=== PATIENT | female | born 1995 | race Caucasian/White ===

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

== ENCOUNTER 2020-10-08 12:13 | Emergency (ER) | payer SELFPAY ==
[2020-10-08 12:19] VITALS: BP 106/69
[2020-10-08] MEDS ORDERED: DEXAMETHASONE SOD PHOS INJ 10 MG/1 ML VIAL IM ONE (13:11)
--- NOTE | 2020-10-08 13:14 | ER Document Report ---
HPI - HPI Time Seen by Provider: 10/08/20 13:02 Pain Level: 5 Context: Patient is a 25-year-old female who presents emergency department with a chief complaint of sore throat. Patient reports this has been ongoing for 5 days and continuing to get worse. Patient states that she was Covid tested 2 days ago which was negative. She states this was a PCR, send out test. Patient reports that her mother is also having similar symptoms. Patient reports she was negative for strep at that time as well. Patient reports she has a history of strep and states it feels the same. Patient also complains of a headache and right ear pain. - CONSTITUTIONAL Constitutional: DENIES: Fever, Chills - EENT EENT: REPORTS: Sore Throat, Ear Pain - NEURO Neurology: REPORTS: Headache - REPRODUCTIVE Reproductive: DENIES: : Past Medical History - General Information source: Patient - Social History Smoking Status: Unknown if Ever Smoked Frequency of alcohol use: None Drug Abuse: None Lives with: Family Family History: Other - Migraine headaches and mother - Past Medical History Cardiac Medical History: Reports: None Pulmonary Medical History: Reports: Hx Bronchitis EENT Medical History: Reports: None Neurological Medical History: Reports: Hx Migraine Endocrine Medical History: Reports: None Renal/ Medical History: Reports: None. Denies: Hx Peritoneal Dialysis Malignancy Medical History: Reports: None GI Medical History: Reports: None Musculoskeletal Medical History: Reports None Skin Medical History: Reports None Psychiatric Medical History: Reports: None Traumatic Medical History: Reports: None Infectious Medical History: Reports: None - Immunizations Immunizations up to date: Yes Hx Diphtheria, Pertussis, Tetanus Vaccination: Yes Vertical Provider Document - CONSTITUTIONAL Agree With Documented VS: Yes Exam Limitations: No Limitations General Appearance: No Apparent Distress Notes: GENERAL: Well-appearing, well-nourished and in no acute distress. HEAD: Atraumatic, normocephalic. EYES: Pupils equal round and reactive to light, extraocular movements intact, sclera anicteric, conjunctiva are normal. ENT: TMs normal, nares patent, oropharynx clear without exudates. Moist mucous membranes. Tonsils + 2 bilaterally, uvula midline, no exudate. NECK: Normal range of motion, supple without lymphadenopathy or JVD. LUNGS: Breath sounds clear to auscultation bilaterally and equal. No wheezes rales or rhonchi. HEART: Regular rate and rhythm without murmurs, rubs or gallops. ABDOMEN: Soft, nontender, normoactive bowel sounds. No guarding, no rebound. No masses appreciated. BACK: No cervical, thoracic, lumbar midline tenderness. No saddle anesthesia, normal distal neurovascular exam. GENITOURINARY: Deferred. EXTREMITIES: Normal range of motion, no pitting or edema. No clubbing or cyanosis. NEUROLOGICAL: Cranial nerves II through XII grossly intact. Normal speech, normal gait. PSYCH: Normal mood, normal affect. SKIN: Warm, Dry, normal turgor, no rashes or lesions noted. - INFECTION CONTROL TRAVEL OUTSIDE OF THE [place] IN LAST 30 DAYS: No Course - Re-evaluation Re-evalutation: 10/08/20 13:42 We'll go ahead and treat the patient as if she has a strep infection. I did inform the patient that if this had a viral component that the antibiotics will not help. Due to the edema of the tonsils we did give her a shot of Decadron here in the emergency department. Patient's airway is patent. Patient was given strict return precautions. Patient's vital signs are within normal limits. Patient is able to swallow her own secretions. - Vital Signs Vital signs: Temp Pulse Resp BP Pulse Ox 98.4 F 97 16 106/69 97 10/08/20 12:17 10/08/20 12:17 10/08/20 12:17 10/08/20 12:17 10/08/20 12:17 - Laboratory Results Critical Laboratory Results Reviewed: No Critical Results - Radiology Results Critical Radiology Results Reviewed: No Critical Results Discharge - Discharge Clinical Impression: Sore throat Condition: Stable Disposition: HOME, SELF-CARE Instructions: Sore Throat ([facility]) Additional Instructions: *Today are seen emergency department for a sore throat. You did report that you had a negative strep and Covid test 2 days ago. Due to worsening symptoms you have been given a dose of Decadron here in the emergency department. Decadron is a steroid which will help with the swelling. You have also been placed on oral antibiotics. Antibiotics will help your symptoms over the next 48 to 72 hours if there is a bacterial component. If symptoms worsen or change please return the emergency department or follow-up with your primary care physician. Monitor for worsening symptoms such as drooling, inability to swallow or swallow your own secretions. Continue the warm salt gargles. Prescriptions: Penicillin V Potassium [Penicillin Vk 500 mg Tablet] 500 mg PO BID #20 tablet Referrals: WALLACE GUTIERREZ MD [Primary Care Provider] - Follow up as needed
== END 2020-10-08 13:19 | disposition home or self-care (01) ==
LOC: ER 12:13
DX: J02.9 Acute pharyngitis, unspecified (principal); R51.9 Headache, unspecified; H92.01 Otalgia, right ear
CPT/HCPCS: 99284; 96372; J1100